=== PATIENT | female | born 1960 | race Native Hawaiian/Other Pacific Islander ===

== ENCOUNTER 2022-04-23 15:51 | Outpatient (CLI) | payer BC | END 2022-04-23 19:22 | disposition home or self-care (01) | LOC: RAD 15:51 | PROVIDERS: ATTEND Nurse Practitioner Family | DX: M05.79 Rheumatoid arthritis with rheumatoid factor of multiple sites without organ or systems involvement (principal); M06.4 Inflammatory polyarthropathy; M85.89 Other specified disorders of bone density and structure, multiple sites ==